=== PATIENT | male | born 1985 | race Caucasian/White ===

== ENCOUNTER 2024-03-07 03:27 | Emergency (ER) | payer BC ==
[2024-03-07] MEDS: Lidocaine 5% Oint 35.44 GM Tube TOP ONE (04:11)
== END 2024-03-07 04:19 | disposition home or self-care (01) ==
LOC: MW.ED 03:27
DX: K62.89 Other specified diseases of anus and rectum (principal); I10 Essential (primary) hypertension; Z87.891 Personal history of nicotine dependence
CPT/HCPCS: 99282; 99283; A9270-GY